=== PATIENT | male | born 2000 | race Caucasian/White ===

== ENCOUNTER 2022-07-15 17:09 | Emergency (ER) | payer BC, SELFPAY | END 2022-07-15 19:00 | disposition home or self-care (01) | LOC: CSHERS 17:09 | DX: S06.0XAA Concussion with loss of consciousness status unknown, initial encounter (principal); H53.9 Unspecified visual disturbance; W18.30XA Fall on same level, unspecified, initial encounter | CPT/HCPCS: 70450 ==